=== PATIENT | male | born 1995 | race Caucasian/White ===

== ENCOUNTER → 2017-08-26 | Outpatient (REF) | payer MEDICAID ==
[2015-12-27 09:13] VITALS: BMI 21.1
[~2017-08-26] MED LIST: LAMO25TA64 PO; QUET50TA21 PO
[2017-08-26 16:54] LABS: PLATELET COUNT, AUTOMATED 285 K/uL (150-450)
== END ==
PROVIDERS: ATTEND Nurse Practitioner Family
DX: J02.9 Acute pharyngitis, unspecified (principal)
CPT/HCPCS: 82040; 82247; 82310; 82374; 82435; 82565; 82947; 84075; 84132; 84155; 84295; 84450; 84460; 84520; 85025